=== PATIENT | female | born 1940 | race Caucasian/White ===

== ENCOUNTER 2019-07-29 13:08 | Outpatient (CLI) | payer OTHER, MEDICARE ==
[~2019-07-29 13:08] MED LIST: BUDE6.9H; FURO-149; HYDR-3607; IPRA14.73; LANS15CA14; LEVO100T9; VALS160T2
== END 2019-07-29 19:09 | disposition home or self-care (01) ==
LOC: SCT 13:08
PROVIDERS: ATTEND Specialist
DX: I77.810 Thoracic aortic ectasia (principal); N28.9 Disorder of kidney and ureter, unspecified; J44.9 Chronic obstructive pulmonary disease, unspecified
CPT/HCPCS: 71250-TC

== ENCOUNTER 2023-03-25 13:49 | Inpatient (IN) | payer OTHER, MEDICARE ==
[~2023-03-25] VITALS: Ht 157.5 cm; Wt 79.8 kg
[2023-03-25 14:14] VITALS: O2SAT 98
[2023-03-25] MEDS ORDERED: NACL 0.9% 1,000 ML IV ONE (14:15)
[2023-03-25 14:46] LABS: BASOPHILS % (AUTO) 0.5 % (0.0-2.0); EOSINOPHILS % (AUTO) 0.5 % (0.0-4.0); HEMATOCRIT 40.4 % (36-48); HEMOGLOBIN 13.9 g/dL (12.0-16.0); LYMPHOCYTES # (AUTO) 1.4 K/uL (1.0-5.5); MEAN CORPUSCULAR HEMOGLOBIN 29 pg (27-31); MEAN CORPUSCULAR HGB CONC 34 % (32-36); MEAN CORPUSCULAR VOLUME 86 fL (79.0-98.0); MONOCYTES # (AUTO) 0.5 K/uL (0.0-1.0); MONOCYTES % (AUTO) 5.1 % (1.7-9.3); NEUTROPHILS # (AUTO) 7.8 K/uL (1.8-7.7); NEUTROPHILS % (AUTO) 79.9 % (40.0-70.0); PLATELET COUNT (AUTO) 231 K/uL (130-430); RED BLOOD CELL COUNT(AUTO) 4.71 MIL/uL (4.2-6.2); RED CELL DISTRIBUTION WIDTH 14.3 % (9.0-15.0); WHITE BLOOD COUNT (AUTO) 9.8 K/uL (4.8-10.8)
[2023-03-25 15:02] LABS: ALANINE AMINOTRANSFERASE 8 U/L (12-78); ALBUMIN 3.6 g/dL (3.4-4.8); ANION GAP 9 (5-15); ASPARTATE AMINOTRANSFERASE 11 U/L (10-37); CALCIUM 9.1 mg/dL (8.4-11.0); CARBON DIOXIDE 28 mmol/L (23-29); CHLORIDE 104 mmol/L (98-107); CREATININE 1.35 mg/dL (0.55-1.30); GLUCOSE 274 mg/dL (74-106); SODIUM SERUM 141 mmol/L (136-145); TOTAL BILIRUBIN 0.9 mg/dL (0.0-1.0); TOTAL PROTEIN, SERUM 6.5 g/dL (6.4-8.3); UREA NITROGEN, BLOOD 20 mg/dL (8-21)
[2023-03-25 16:37] LABS: BILIRUBIN,URINE NEGATIVE (NEGATIVE); BLOOD, URINE NEGATIVE (NEGATIVE); COLOR,URINE YELLOW (YELLOW); GLUCOSE,URINE NEGATIVE (NEGATIVE); KETONES,URINE NEGATIVE (NEGATIVE); LEUKOCYTE ESTERASE ,URINE 1+ (NEGATIVE); NITRITE, URINE NEGATIVE (NEGATIVE); PROTEIN URINE NEGATIVE (NEGATIVE); UROBILINOGEN,URINE 0.2 (0.2-1.0)
[2023-03-25 16:49] LABS: CLARITY/URINE SLIGHTLY HAZY (CLEAR)
[2023-03-25] MEDS ORDERED: cefTRIAXone 1 GM in D5W 50 ML IV ONE (17:15)
[2023-03-25] MEDS ORDERED: POTASSIUM CHLORIDE 20 MEQ TAB.PRT.SR PO ONE (17:15)
[2023-03-25 17:16] LABS: BACTERIA,URINE FEW /HPF (None Seen); MUCUS,URINE 1+ /LPF (None Seen); RBC,URINE NONE SEEN /HPF (0-3); URINE AMORPHOUS PHOSPHATES 1+ /HPF (None Seen)
[2023-03-25 17:44] VITALS: PULSE 90; O2SAT 98
[2023-03-25] MEDS ORDERED: IPRATROPIUM/ALBUTEROL SULFATE 3 ML AMPUL.NEB (DUONEB) INH PRN (17:45)
[2023-03-25] MEDS ORDERED: ZOLPIDEM TARTRATE 5 MG TABLET PO PRN (17:45)
[2023-03-25] MEDS ORDERED: ONDANSETRON HCL 4 MG/2 ML VIAL IVP PRN (17:45)
[2023-03-25] MEDS ORDERED: LORazepam 2 MG/ML VIAL IVP PRN (17:45)
[2023-03-25] MEDS ORDERED: ACETAMINOPHEN 325 MG TABLET PO PRN ×2 (17:45)
[2023-03-25] MEDS ORDERED: MAGNESIUM SULFATE 50 ML IV PRN (17:45)
[2023-03-25] MEDS ORDERED: MUPIROCIN 2% TOPICAL OINTMENT 22 GM NS PRN (17:45)
[2023-03-25] MEDS: NACL 0.9% 1,000 ML IV SCH (17:45)
[2023-03-25] MEDS ORDERED: DOCUSATE SODIUM 100 MG CAPSULE PO PRN (17:45)
[2023-03-25] MEDS ORDERED: MORPHINE 2 MG/ML INJ. SYRINGE IVP PRN ×2 (17:45)
[2023-03-25] MEDS ORDERED: AZITHROMYCIN 250 MG TABLET PO ONE (18:00)
[2023-03-25] MEDS ORDERED: cefTRIAXone 1 GM VIAL ONE (19:00)
[2023-03-25] MEDS ORDERED: DEXTROSE 50% JECT 50 ML DISP.SYRIN IVP PRN (21:30)
[2023-03-25 21:48] VITALS: BP_SYST 131; PULSE 69; RESP 18; TEMP 97
[2023-03-25] MEDS: HEPARIN SODIUM,PORCINE 5,000 UNITS/ML VIAL SUBCUT SCH (22:20)
[2023-03-25] MEDS: INSULIN LISPRO SLIDING SCALE 100 UNITS/ML, 3 ML VIAL (humaLOG) SUBCUT PRN (22:21)
[2023-03-26] VITALS: BP_SYST 128; PULSE 74; RESP 18; TEMP 97.2; O2SAT 95
[2023-03-26] MEDS: LEVOTHYROXINE SODIUM 0.1 MG TABLET PO SCH (05:55)
[2023-03-26] MEDS: INSULIN LISPRO SLIDING SCALE 100 UNITS/ML, 3 ML VIAL (humaLOG) SUBCUT PRN ×2 (05:57→12:10)
[2023-03-26 06:55] LABS: BASOPHILS % (AUTO) 0.2 % (0.0-2.0); EOSINOPHILS # (AUTO) 0.2 K/uL (0.0-0.4); EOSINOPHILS % (AUTO) 1.7 % (0.0-4.0); HEMATOCRIT 37.3 % (36-48); HEMOGLOBIN 12.4 g/dL (12.0-16.0); LYMPHOCYTES # (AUTO) 2.6 K/uL (1.0-5.5); LYMPHOCYTES % (AUTO) 29.5 % (20.5-51.5); MEAN CORPUSCULAR HEMOGLOBIN 29 pg (27-31); MEAN CORPUSCULAR HGB CONC 33 % (32-36); MEAN CORPUSCULAR VOLUME 86 fL (79.0-98.0); MONOCYTES # (AUTO) 0.6 K/uL (0.0-1.0); MONOCYTES % (AUTO) 6.4 % (1.7-9.3); NEUTROPHILS # (AUTO) 5.5 K/uL (1.8-7.7); NEUTROPHILS % (AUTO) 62.2 % (40.0-70.0); PLATELET COUNT (AUTO) 199 K/uL (130-430); RED BLOOD CELL COUNT(AUTO) 4.31 MIL/uL (4.2-6.2); RED CELL DISTRIBUTION WIDTH 14.9 % (9.0-15.0); WHITE BLOOD COUNT (AUTO) 8.9 K/uL (4.8-10.8)
[2023-03-26 07:24] LABS: ANION GAP 8 (5-15); CALCIUM 8.2 mg/dL (8.4-11.0); CARBON DIOXIDE 26 mmol/L (23-29); CHLORIDE 107 mmol/L (98-107); CREATININE 0.99 mg/dL (0.55-1.30); GLUCOSE 171 mg/dL (74-106); POTASSIUM 3.1 mmol/L (3.5-5.1); SODIUM SERUM 141 mmol/L (136-145); UREA NITROGEN, BLOOD 16 mg/dL (8-21)
[2023-03-26 08:00] VITALS: BP_SYST 169; PULSE 64; RESP 20; TEMP 96.9; O2SAT 97
[2023-03-26] MEDS: AZITHROMYCIN 250 MG TABLET PO SCH (08:39)
[2023-03-26] MEDS: FUROSEMIDE 40 MG TABLET PO SCH (08:39)
[2023-03-26] MEDS: LOSARTAN POTASSIUM 50 MG TABLET (COZAAR) PO SCH (08:39)
[2023-03-26] MEDS: cefTRIAXone 1 GM in D5W 50 ML IV SCH (08:40)
[2023-03-26] MEDS: HEPARIN SODIUM,PORCINE 5,000 UNITS/ML VIAL SUBCUT SCH ×2 (08:45→20:45)
[2023-03-26] MEDS ORDERED: VALSARTAN Non-Formulary 160 MG TABLET PO SCH (09:00)
[2023-03-26] MEDS ORDERED: metFORMIN HCL 500 MG TABLET PO ONE (10:45)
[2023-03-26 12:00] VITALS: BP_SYST 145; PULSE 70; RESP 18; TEMP 97; O2SAT 95
[2023-03-26] MEDS: NACL 0.9% 1,000 ML IV SCH ×2 (12:06→22:21)
[2023-03-26 16:00] VITALS: BP_SYST 150; PULSE 66; RESP 20; TEMP 96.9; O2SAT 96
[2023-03-26] MEDS: metFORMIN HCL 500 MG TABLET PO SCH (17:17)
[2023-03-26 20:00] VITALS: BP_SYST 154; PULSE 68; RESP 18; TEMP 97.4; O2SAT 94
[2023-03-27] VITALS: BP_SYST 144; PULSE 67; RESP 18; TEMP 97.4; O2SAT 95
[2023-03-27 04:58] LABS: BASOPHILS % (AUTO) 0.4 % (0.0-2.0); EOSINOPHILS # (AUTO) 0.1 K/uL (0.0-0.4); EOSINOPHILS % (AUTO) 1.4 % (0.0-4.0); HEMATOCRIT 39.9 % (36-48); HEMOGLOBIN 13.4 g/dL (12.0-16.0); LYMPHOCYTES # (AUTO) 2.6 K/uL (1.0-5.5); LYMPHOCYTES % (AUTO) 27.7 % (20.5-51.5); MEAN CORPUSCULAR HEMOGLOBIN 29 pg (27-31); MEAN CORPUSCULAR HGB CONC 34 % (32-36); MEAN CORPUSCULAR VOLUME 87 fL (79.0-98.0); MONOCYTES # (AUTO) 0.5 K/uL (0.0-1.0); MONOCYTES % (AUTO) 5.7 % (1.7-9.3); NEUTROPHILS # (AUTO) 6.2 K/uL (1.8-7.7); NEUTROPHILS % (AUTO) 64.8 % (40.0-70.0); PLATELET COUNT (AUTO) 203 K/uL (130-430); RED CELL DISTRIBUTION WIDTH 14.7 % (9.0-15.0); WHITE BLOOD COUNT (AUTO) 9.5 K/uL (4.8-10.8)
[2023-03-27 05:43] LABS: ANION GAP 7 (5-15); CALCIUM 8.3 mg/dL (8.4-11.0); CARBON DIOXIDE 28 mmol/L (23-29); CHLORIDE 109 mmol/L (98-107); CREATININE 1.09 mg/dL (0.55-1.30); GLUCOSE 160 mg/dL (74-106); SODIUM SERUM 144 mmol/L (136-145); UREA NITROGEN, BLOOD 15 mg/dL (8-21)
[2023-03-27] MEDS: LEVOTHYROXINE SODIUM 0.1 MG TABLET PO SCH (06:06)
[2023-03-27 08:00] VITALS: BP_SYST 164; PULSE 72; RESP 18; TEMP 97.1; O2SAT 98
[2023-03-27] MEDS: cefTRIAXone 1 GM in D5W 50 ML IV SCH (08:53)
[2023-03-27] MEDS: FUROSEMIDE 40 MG TABLET PO SCH (08:54)
[2023-03-27] MEDS: metFORMIN HCL 500 MG TABLET PO SCH ×2 (08:54→17:27)
[2023-03-27] MEDS: POTASSIUM CHLORIDE 20 MEQ TAB.PRT.SR PO PRN (08:54)
[2023-03-27] MEDS: AZITHROMYCIN 250 MG TABLET PO SCH (08:55)
[2023-03-27] MEDS: LOSARTAN POTASSIUM 50 MG TABLET (COZAAR) PO SCH (08:55)
[2023-03-27] MEDS: HEPARIN SODIUM,PORCINE 5,000 UNITS/ML VIAL SUBCUT SCH ×2 (08:59→22:29)
[2023-03-27] MEDS: INSULIN LISPRO SLIDING SCALE 100 UNITS/ML, 3 ML VIAL (humaLOG) SUBCUT PRN ×3 (11:59→22:30)
[2023-03-27 12:07] VITALS: BP_SYST 135; PULSE 83; RESP 16; TEMP 96.7; O2SAT 96
[2023-03-27] MEDS: NACL 0.9% 1,000 ML IV SCH (12:16)
[2023-03-27 16:00] VITALS: BP_SYST 132; PULSE 80; RESP 18; TEMP 97; O2SAT 96
[2023-03-27 20:30] VITALS: BP_SYST 137; PULSE 84; RESP 18; TEMP 98.2; O2SAT 95
[2023-03-27 21:00] VITALS: O2SAT 95
[2023-03-27] MEDS ORDERED: OLANZapine 2.5 MG TABLET PO SCH (21:00)
[2023-03-28 00:54] VITALS: BP_SYST 145; PULSE 89; RESP 18; TEMP 98.3; O2SAT 96
[2023-03-28] MEDS: LEVOTHYROXINE SODIUM 0.1 MG TABLET PO SCH (06:06)
[2023-03-28] MEDS: NACL 0.9% 1,000 ML IV SCH (06:08)
[2023-03-28 06:48] LABS: BASOPHILS # (AUTO) 0.1 K/uL (0.0-0.2); BASOPHILS % (AUTO) 0.5 % (0.0-2.0); EOSINOPHILS # (AUTO) 0.2 K/uL (0.0-0.4); EOSINOPHILS % (AUTO) 1.6 % (0.0-4.0); HEMATOCRIT 40.7 % (36-48); HEMOGLOBIN 13.7 g/dL (12.0-16.0); LYMPHOCYTES # (AUTO) 2.8 K/uL (1.0-5.5); LYMPHOCYTES % (AUTO) 28.4 % (20.5-51.5); MEAN CORPUSCULAR HEMOGLOBIN 29 pg (27-31); MEAN CORPUSCULAR HGB CONC 34 % (32-36); MEAN CORPUSCULAR VOLUME 87 fL (79.0-98.0); MONOCYTES # (AUTO) 0.6 K/uL (0.0-1.0); MONOCYTES % (AUTO) 5.9 % (1.7-9.3); NEUTROPHILS # (AUTO) 6.2 K/uL (1.8-7.7); NEUTROPHILS % (AUTO) 63.6 % (40.0-70.0); PLATELET COUNT (AUTO) 202 K/uL (130-430); RED BLOOD CELL COUNT(AUTO) 4.68 MIL/uL (4.2-6.2); RED CELL DISTRIBUTION WIDTH 14.3 % (9.0-15.0); WHITE BLOOD COUNT (AUTO) 9.8 K/uL (4.8-10.8)
[2023-03-28 07:04] LABS: ANION GAP 8 (5-15); CALCIUM 8.6 mg/dL (8.4-11.0); CARBON DIOXIDE 26 mmol/L (23-29); CHLORIDE 109 mmol/L (98-107); CREATININE 1.02 mg/dL (0.55-1.30); GLUCOSE 167 mg/dL (74-106); POTASSIUM 3.2 mmol/L (3.5-5.1); SODIUM SERUM 143 mmol/L (136-145); UREA NITROGEN, BLOOD 20 mg/dL (8-21)
[2023-03-28 08:00] VITALS: BP_SYST 136; PULSE 77; RESP 17; TEMP 97; O2SAT 99
[2023-03-28] MEDS: cefTRIAXone 1 GM in D5W 50 ML IV SCH (08:26)
[2023-03-28] MEDS: LOSARTAN POTASSIUM 50 MG TABLET (COZAAR) PO SCH (08:26)
[2023-03-28] MEDS: FUROSEMIDE 40 MG TABLET PO SCH (08:27)
[2023-03-28] MEDS: AZITHROMYCIN 250 MG TABLET PO SCH (08:27)
[2023-03-28] MEDS: metFORMIN HCL 500 MG TABLET PO SCH (08:28)
[2023-03-28] MEDS: HEPARIN SODIUM,PORCINE 5,000 UNITS/ML VIAL SUBCUT SCH (08:28)
[2023-03-28] MEDS: POTASSIUM CHLORIDE 20 MEQ TAB.PRT.SR PO PRN (08:43)
[2023-03-28] MEDS ORDERED: OLAN2.5T3 PO (10:09)
[2023-03-28] MEDS ORDERED: METF-379 PO (10:09)
[2023-03-28] MEDS ORDERED: AZIT-93 PO (10:09)
[2023-03-28 10:28] VITALS: BP_SYST 136; PULSE 77; O2SAT 99
[2023-03-28 12:18] VITALS: BP_SYST 126; PULSE 66; RESP 18; TEMP 97.2; O2SAT 98
[2023-03-28 12:22] VITALS: BP_SYST 126; PULSE 66; RESP 17; TEMP 97.3; O2SAT 97
== END 2023-03-28 13:40 | DRG 177 ==
LOC: SED 13:49 → SMU 17:19
PROVIDERS: ADMIT General Practice; ATTEND General Practice
DX: J69.0 Pneumonitis due to inhalation of food and vomit (principal); N17.0 Acute kidney failure with tubular necrosis; N39.0 Urinary tract infection, site not specified; F05 Delirium due to known physiological condition; E11.65 Type 2 diabetes mellitus with hyperglycemia; I11.0 Hypertensive heart disease with heart failure; I50.9 Heart failure, unspecified; E87.6 Hypokalemia; E86.0 Dehydration; E03.9 Hypothyroidism, unspecified; J44.9 Chronic obstructive pulmonary disease, unspecified; Z66 Do not resuscitate; Z20.822 Contact with and (suspected) exposure to COVID-19; Z91.81 History of falling; Z88.6 Allergy status to analgesic agent; Z88.2 Allergy status to sulfonamides; Z88.8 Allergy status to other drugs, medicaments and biological substances; Z79.899 Other long term (current) drug therapy
CPT/HCPCS: 36415; 70450-TC; 71045; 76376; 80048; 80053; 81000; 82962; 83037; 83735; 83880; 84484; 85025; 87040; 87086; 93005; 96361; 96365; 97116-GP; 97163-GP; 97530-GP; 99285; J0696; J1644; J7030; J7060; Q0144

== ENCOUNTER 2023-04-22 10:00 | Inpatient (IN) | payer OTHER, MEDICARE ==
[~2023-04-22] VITALS: Ht 167.6 cm; Wt 74.8 kg
[~2023-04-22 10:00] MED LIST changes: +AZIT-93 PO; -HYDR-3607; +METF-379 PO; +OLAN2.5T3 PO
[2023-04-22 10:07] VITALS: BP_SYST 115; PULSE 68; RESP 18; TEMP 98.1; O2SAT 99
[2023-04-22] MEDS ORDERED: NACL 0.9% 1,000 ML IV ONE ×2 (10:15→14:15)
[2023-04-22 10:50] LABS: BASOPHILS # (AUTO) 0.1 K/uL (0.0-0.2); BASOPHILS % (AUTO) 0.4 % (0.0-2.0); EOSINOPHILS # (AUTO) 0.9 K/uL (0.0-0.4); EOSINOPHILS % (AUTO) 6.2 % (0.0-4.0); HEMATOCRIT 46.8 % (36-48); HEMOGLOBIN 15.4 g/dL (12.0-16.0); LYMPHOCYTES # (AUTO) 3.1 K/uL (1.0-5.5); LYMPHOCYTES % (AUTO) 22.4 % (20.5-51.5); MEAN CORPUSCULAR HEMOGLOBIN 29 pg (27-31); MEAN CORPUSCULAR HGB CONC 33 % (32-36); MEAN CORPUSCULAR VOLUME 89 fL (79.0-98.0); MONOCYTES # (AUTO) 0.7 K/uL (0.0-1.0); NEUTROPHILS # (AUTO) 9.1 K/uL (1.8-7.7); PLATELET COUNT (AUTO) 227 K/uL (130-430); RED BLOOD CELL COUNT(AUTO) 5.29 MIL/uL (4.2-6.2); RED CELL DISTRIBUTION WIDTH 14.4 % (9.0-15.0); WHITE BLOOD COUNT (AUTO) 13.8 K/uL (4.8-10.8)
[2023-04-22 11:12] LABS: PROTHROMBIN TIME 10.6 SECS (9.5-12.5)
[2023-04-22 11:15] LABS: ALANINE AMINOTRANSFERASE 12 U/L (12-78); ALBUMIN 3.4 g/dL (3.4-4.8); ANION GAP 18 (5-15); ASPARTATE AMINOTRANSFERASE 19 U/L (10-37); CALCIUM 9.8 mg/dL (8.4-11.0); CARBON DIOXIDE 13 mmol/L (23-29); CHLORIDE 106 mmol/L (98-107); CREATININE 1.52 mg/dL (0.55-1.30); GLUCOSE 156 mg/dL (74-106); SODIUM SERUM 137 mmol/L (136-145); TOTAL BILIRUBIN 0.6 mg/dL (0.0-1.0); TOTAL PROTEIN, SERUM 7.1 g/dL (6.4-8.3); UREA NITROGEN, BLOOD 47 mg/dL (8-21)
[2023-04-22 13:49] LABS: BILIRUBIN,URINE NEGATIVE (NEGATIVE); BLOOD, URINE NEGATIVE (NEGATIVE); CLARITY/URINE Clear (CLEAR); COLOR,URINE YELLOW (YELLOW); GLUCOSE,URINE NEGATIVE (NEGATIVE); NITRITE, URINE NEGATIVE (NEGATIVE); PROTEIN URINE NEGATIVE (NEGATIVE); UROBILINOGEN,URINE 0.2 (0.2-1.0)
[2023-04-22 13:51] LABS: KETONES,URINE NEGATIVE (NEGATIVE); LEUKOCYTE ESTERASE ,URINE TRACE (NEGATIVE)
[2023-04-22 13:56] LABS: BACTERIA,URINE FEW /HPF (None Seen); MUCUS,URINE 1+ /LPF (None Seen)
[2023-04-22] MEDS ORDERED: ACETAMINOPHEN 325 MG TABLET PO PRN ×2 (14:15→14:30)
[2023-04-22] MEDS ORDERED: ZOLPIDEM TARTRATE 5 MG TABLET PO PRN (14:15)
[2023-04-22] MEDS ORDERED: ONDANSETRON HCL 4 MG/2 ML VIAL IVP PRN (14:15)
[2023-04-22] MEDS ORDERED: DEXTROSE 50% JECT 50 ML DISP.SYRIN IVP PRN (14:15)
[2023-04-22] MEDS ORDERED: DOCUSATE SODIUM 100 MG CAPSULE PO PRN (14:15)
[2023-04-22] MEDS ORDERED: LORazepam 2 MG/ML VIAL IVP PRN (14:15)
[2023-04-22] MEDS ORDERED: CEFEPIME 1 GM in D5W 50 ML IV ONE (14:15)
[2023-04-22] MEDS ORDERED: MORPHINE 2 MG/ML INJ. SYRINGE IVP PRN ×2 (14:15)
[2023-04-22] MEDS ORDERED: POTASSIUM CHLORIDE 20 MEQ TAB.PRT.SR PO PRN (14:15)
[2023-04-22] MEDS ORDERED: MUPIROCIN 2% TOPICAL OINTMENT 22 GM NS PRN (14:15)
[2023-04-22] MEDS ORDERED: MAGNESIUM SULFATE 50 ML IV PRN (14:15)
[2023-04-22] MEDS: NACL 0.9% 1,000 ML IV SCH (14:48)
[2023-04-22] MEDS ORDERED: CEFEPIME 1 GM/VIAL (MAXIPIME) ONE (14:58)
[2023-04-22 15:09] VITALS: PULSE 68; O2SAT 99
[2023-04-22] MEDS ORDERED: IPRATROPIUM/ALBUTEROL SULFATE 3 ML AMPUL.NEB (DUONEB) INH PRN (15:15)
[2023-04-22] MEDS ORDERED: MAGNESIUM SULFATE/D5W 100 ML IV ONE (16:45)
[2023-04-22] MEDS ORDERED: cefTRIAXone 1 GM VIAL ONE (19:02)
[2023-04-22] MEDS: cefTRIAXone 1 GM in D5W 50 ML IV SCH (19:02)
[2023-04-22] MEDS: BUDESONIDE 0.5 MG/2 ML AMPUL.NEB INH SCH (19:39)
[2023-04-22 19:48] VITALS: O2SAT 97
[2023-04-22 21:00] VITALS: BP_SYST 110; PULSE 99; RESP 18; TEMP 97.5
[2023-04-22] MEDS: INSULIN LISPRO SLIDING SCALE 100 UNITS/ML, 3 ML VIAL (humaLOG) SUBCUT PRN (21:47)
[2023-04-22] MEDS: HEPARIN SODIUM,PORCINE 5,000 UNITS/ML VIAL SUBCUT SCH (21:48)
[2023-04-23] VITALS (19 sets, daily range): BP systolic 94–168; PULSE 64–147; RESP 11–59; TEMP 97.5–98.6; O2SAT 95–99
[2023-04-23 05:17] LABS: BASOPHILS # (AUTO) 0.1 K/uL (0.0-0.2); BASOPHILS % (AUTO) 0.5 % (0.0-2.0); EOSINOPHILS # (AUTO) 0.8 K/uL (0.0-0.4); HEMATOCRIT 39.4 % (36-48); HEMOGLOBIN 13.3 g/dL (12.0-16.0); LYMPHOCYTES # (AUTO) 2.1 K/uL (1.0-5.5); LYMPHOCYTES % (AUTO) 19.2 % (20.5-51.5); MEAN CORPUSCULAR HEMOGLOBIN 30 pg (27-31); MEAN CORPUSCULAR HGB CONC 34 % (32-36); MEAN CORPUSCULAR VOLUME 88 fL (79.0-98.0); MONOCYTES # (AUTO) 0.5 K/uL (0.0-1.0); MONOCYTES % (AUTO) 4.3 % (1.7-9.3); NEUTROPHILS # (AUTO) 7.5 K/uL (1.8-7.7); PLATELET COUNT (AUTO) 190 K/uL (130-430); RED BLOOD CELL COUNT(AUTO) 4.48 MIL/uL (4.2-6.2); RED CELL DISTRIBUTION WIDTH 14.8 % (9.0-15.0); WHITE BLOOD COUNT (AUTO) 10.9 K/uL (4.8-10.8)
[2023-04-23 05:29] LABS: ANION GAP 13 (5-15); CALCIUM 8.3 mg/dL (8.4-11.0); CARBON DIOXIDE 19 mmol/L (23-29); CHLORIDE 108 mmol/L (98-107); GLUCOSE 136 mg/dL (74-106); POTASSIUM 4.3 mmol/L (3.5-5.1); SODIUM SERUM 140 mmol/L (136-145); UREA NITROGEN, BLOOD 39 mg/dL (8-21)
[2023-04-23] MEDS: BUDESONIDE 0.5 MG/2 ML AMPUL.NEB INH SCH ×2 (07:28→19:45)
[2023-04-23] MEDS: LEVOTHYROXINE SODIUM 0.1 MG TABLET PO SCH (07:40)
[2023-04-23] MEDS: NACL 0.9% 1,000 ML IV SCH ×2 (07:41→16:10)
[2023-04-23] MEDS ORDERED: VALSARTAN Non-Formulary 160 MG TABLET PO SCH (09:00)
[2023-04-23] MEDS: LOSARTAN POTASSIUM 50 MG TABLET (COZAAR) PO SCH (10:59)
[2023-04-23] MEDS: HEPARIN SODIUM,PORCINE 5,000 UNITS/ML VIAL SUBCUT SCH ×2 (11:00→20:37)
[2023-04-23] MEDS: INSULIN LISPRO SLIDING SCALE 100 UNITS/ML, 3 ML VIAL (humaLOG) SUBCUT PRN ×2 (12:42→16:55)
[2023-04-23] MEDS ORDERED: INSULIN LISPRO SLIDING SCALE 100 UNITS/ML, 3 ML VIAL (humaLOG) SUBCUT PRN (18:15)
[2023-04-23] MEDS: cefTRIAXone 1 GM in D5W 50 ML IV SCH (18:23)
[2023-04-24 00:15] VITALS: BP_SYST 124; PULSE 76; RESP 18; TEMP 97.7; O2SAT 99
[2023-04-24] MEDS: NACL 0.9% 1,000 ML IV SCH ×2 (05:59→16:30)
[2023-04-24] MEDS: LEVOTHYROXINE SODIUM 0.1 MG TABLET PO SCH (06:01)
[2023-04-24 06:08] LABS: CREATININE 0.96 mg/dL (0.55-1.30)
[2023-04-24 06:29] LABS: ANION GAP 10 (5-15); CALCIUM 8.4 mg/dL (8.4-11.0); CARBON DIOXIDE 19 mmol/L (23-29); CHLORIDE 114 mmol/L (98-107); GLUCOSE 118 mg/dL (74-106); SODIUM SERUM 143 mmol/L (136-145); UREA NITROGEN, BLOOD 26 mg/dL (8-21)
[2023-04-24 06:48] LABS: BASOPHILS % (AUTO) 0.5 % (0.0-2.0); EOSINOPHILS # (AUTO) 0.7 K/uL (0.0-0.4); EOSINOPHILS % (AUTO) 9.3 % (0.0-4.0); HEMATOCRIT 38.2 % (36-48); HEMOGLOBIN 12.6 g/dL (12.0-16.0); LYMPHOCYTES # (AUTO) 2.1 K/uL (1.0-5.5); LYMPHOCYTES % (AUTO) 26.2 % (20.5-51.5); MEAN CORPUSCULAR HEMOGLOBIN 29 pg (27-31); MEAN CORPUSCULAR HGB CONC 33 % (32-36); MEAN CORPUSCULAR VOLUME 89 fL (79.0-98.0); MONOCYTES # (AUTO) 0.4 K/uL (0.0-1.0); NEUTROPHILS # (AUTO) 4.7 K/uL (1.8-7.7); PLATELET COUNT (AUTO) 164 K/uL (130-430); RED BLOOD CELL COUNT(AUTO) 4.29 MIL/uL (4.2-6.2); RED CELL DISTRIBUTION WIDTH 14.7 % (9.0-15.0); WHITE BLOOD COUNT (AUTO) 7.9 K/uL (4.8-10.8)
[2023-04-24 07:41] VITALS: O2SAT 98
[2023-04-24] MEDS: BUDESONIDE 0.5 MG/2 ML AMPUL.NEB INH SCH (07:41)
[2023-04-24] MEDS: LOSARTAN POTASSIUM 50 MG TABLET (COZAAR) PO SCH (08:35)
[2023-04-24] MEDS: HEPARIN SODIUM,PORCINE 5,000 UNITS/ML VIAL SUBCUT SCH (08:37)
[2023-04-24 12:44] VITALS: BP_SYST 128; PULSE 79; RESP 19; TEMP 98.1; O2SAT 97
[2023-04-24 14:40] VITALS: BP_SYST 128; PULSE 79; RESP 14; TEMP 98; O2SAT 97
[2023-04-24 16:00] VITALS: BP_SYST 126; PULSE 77; RESP 17; TEMP 97.9; O2SAT 98
[2023-04-24] MEDS ORDERED: ROCPM1 IV (16:12)
== END 2023-04-24 18:13 | DRG 871 ==
LOC: SED 10:00 → SMU 13:52 → STU 17:40 → SIC 04-23 09:05 → STU 04-23 22:14
PROVIDERS: ADMIT General Practice; ATTEND General Practice
DX: A41.9 Sepsis, unspecified organism (principal); G93.41 Metabolic encephalopathy; N17.0 Acute kidney failure with tubular necrosis; N39.0 Urinary tract infection, site not specified; I48.92 Unspecified atrial flutter; E87.5 Hyperkalemia; I11.0 Hypertensive heart disease with heart failure; I50.9 Heart failure, unspecified; G30.9 Alzheimer's disease, unspecified; E11.9 Type 2 diabetes mellitus without complications; Z66 Do not resuscitate; F02.80 Dementia in other diseases classified elsewhere, unspecified severity, without behavioral disturbance, psychotic disturbance, mood disturbance, and anxiety; J44.9 Chronic obstructive pulmonary disease, unspecified; E03.9 Hypothyroidism, unspecified; Z88.6 Allergy status to analgesic agent; Z88.2 Allergy status to sulfonamides; Z88.8 Allergy status to other drugs, medicaments and biological substances; Z79.899 Other long term (current) drug therapy
CPT/HCPCS: 36415; 71045; 80048; 80053; 81000; 82962; 83037; 83605; 83735; 83880; 84484; 85025; 85610-TC; 85730-TC; 87040; 87081; 87086; 93005; 93306; 94640; 94760; 99285; G0378; J0692; J0696; J1644; J2060; J3490; J7030; J7060; J7626